=== PATIENT | female | born 1935 | race Caucasian/White ===

== ENCOUNTER 2020-06-04 15:09 | Emergency (ER) | payer MEDICARE ==
[~2020-06-04] VITALS: Ht 170.2 cm; Wt 83.9 kg
[2020-06-04 15:15] VITALS: BP_SYST 104
[2020-06-04 16:53] LABS: ANION GAP 7 (5-15); CALCIUM 7.7 mg/dL (8.4-11.0); CHLORIDE 106 mmol/L (98-107); CREATININE 1.17 mg/dL (0.55-1.30); GLUCOSE 92 mg/dL (70-99); SODIUM SERUM 137 mmol/L (136-145); UREA NITROGEN, BLOOD 21 mg/dL (8-21)
[2020-06-04 16:55] LABS: EOSINOPHILS % (AUTO) 0.1 % (0.0-4.0)
[2020-06-04 17:04] LABS: ALANINE AMINOTRANSFERASE 44 U/L (12-78); ALBUMIN 3.1 g/dL (3.4-4.8); ASPARTATE AMINOTRANSFERASE 70 U/L (10-37); TOTAL BILIRUBIN 0.5 mg/dL (0.0-1.0)
[2020-06-04 17:57] LABS: BASOPHILS % (AUTO) 0.4 % (0.0-2.0); HEMATOCRIT 37.8 % (36-48); HEMOGLOBIN 12.6 g/dL (12.0-16.0); LYMPHOCYTES # (AUTO) 1.2 K/uL (1.0-5.5); LYMPHOCYTES % (AUTO) 27.8 % (20.5-51.5); MEAN CORPUSCULAR HEMOGLOBIN 32 pg (27-31); MEAN CORPUSCULAR HGB CONC 33 % (32-36); MEAN CORPUSCULAR VOLUME 95 fL (79.0-98.0); MONOCYTES # (AUTO) 0.4 K/uL (0.0-1.0); MONOCYTES % (AUTO) 8.2 % (1.7-9.3); NEUTROPHILS # (AUTO) 2.7 K/uL (1.8-7.7); NEUTROPHILS % (AUTO) 63.5 % (40.0-70.0); PLATELET COUNT (AUTO) 125 K/uL (130-430); RED BLOOD CELL COUNT(AUTO) 3.98 MIL/uL (4.2-6.2); RED CELL DISTRIBUTION WIDTH 14.3 % (9.0-15.0); WHITE BLOOD COUNT (AUTO) 4.3 K/uL (4.8-10.8)
[2020-06-04 18:07] LABS: BILIRUBIN,URINE NEGATIVE (NEGATIVE); BLOOD, URINE NEGATIVE (NEGATIVE); COLOR,URINE YELLOW (YELLOW); GLUCOSE,URINE NEGATIVE (NEGATIVE); KETONES,URINE NEGATIVE (NEGATIVE); LEUKOCYTE ESTERASE ,URINE 1+ (NEGATIVE); NITRITE, URINE POSITIVE (NEGATIVE); PROTEIN URINE NEGATIVE (NEGATIVE); UROBILINOGEN,URINE 0.2 (0.2-1.0)
[2020-06-04 18:21] LABS: CLARITY/URINE HAZY (CLEAR)
[2020-06-04 18:37] LABS: BACTERIA,URINE MANY /HPF (None Seen); RBC,URINE 0-3 /HPF (0-3); WBC,URINE 20-50 /HPF (0-3)
[2020-06-04 18:38] LABS: FINE GRANULAR CASTS,URINE 0-10 /LPF (None Seen); MUCUS,URINE 1+ /LPF (None Seen)
[2020-06-04 19:00] VITALS: BP_SYST 146
== END 2020-06-04 19:00 | disposition home or self-care (01) ==
LOC: SED 15:09
DX: N39.0 Urinary tract infection, site not specified (principal); I10 Essential (primary) hypertension; Z20.822 Contact with and (suspected) exposure to COVID-19
CPT/HCPCS: 36415; 71045; 80053; 81000-TC; 84484; 85025; 87040-TC; 87086; 93005; 99285

== ENCOUNTER 2020-06-07 06:43 | Inpatient (IN) | payer MEDICARE, SELFPAY ==
[~2020-06-07] VITALS: Ht 152.4 cm; Wt 83.0 kg
[2020-06-07 06:45] VITALS: BP_SYST 142
[2020-06-07] MEDS ORDERED: DEXAMETHASONE SOD PHOSPHATE 10 MG/ML VIAL IVP ONE (08:00)
[2020-06-07] MEDS ORDERED: cefTRIAXone 1 GM IVPB PREMIX 50 ML IV ONE (08:15)
[2020-06-07] MEDS ORDERED: DEXAMETHASONE SOD PHOSPHATE 10 MG/ML VIAL ONE ×2 (08:28→14:01)
[2020-06-07 08:38] LABS: ANION GAP 13 (5-15); CALCIUM 8.2 mg/dL (8.4-11.0); CHLORIDE 102 mmol/L (98-107); CREATININE 0.87 mg/dL (0.55-1.30); GLUCOSE 94 mg/dL (70-99); POTASSIUM 3.6 mmol/L (3.5-5.1); SODIUM SERUM 137 mmol/L (136-145); UREA NITROGEN, BLOOD 20 mg/dL (8-21)
[2020-06-07 08:44] LABS: ALANINE AMINOTRANSFERASE 35 U/L (12-78); ASPARTATE AMINOTRANSFERASE 89 U/L (10-37); LACTATE DEHYDROGENASE 558 U/L (81-234); TOTAL BILIRUBIN 0.7 mg/dL (0.0-1.0)
[2020-06-07 09:01] LABS: BILIRUBIN,URINE NEGATIVE (NEGATIVE); COLOR,URINE YELLOW (YELLOW); GLUCOSE,URINE NEGATIVE (NEGATIVE); KETONES,URINE TRACE (NEGATIVE); LEUKOCYTE ESTERASE ,URINE NEGATIVE (NEGATIVE); NITRITE, URINE NEGATIVE (NEGATIVE); PROTEIN URINE 1+ (NEGATIVE); UROBILINOGEN,URINE 0.2 (0.2-1.0)
[2020-06-07 09:06] LABS: BLOOD, URINE TRACE (NEGATIVE)
[2020-06-07 09:13] LABS: CKMB RELATIVE INDEX 0.5 (0.0-2.9); CREATINE KINASE MB 0.9 ng/mL (0-3.6)
[2020-06-07 10:03] LABS: C-REACTIVE PROTEIN QUANT 17.3 mg/dL (0-0.5)
[2020-06-07 10:38] LABS: CLARITY/URINE SLIGHTLY HAZY (CLEAR)
[2020-06-07 10:38] LABS: PROTHROMBIN TIME 10.6 SECS (9.5-12.5)
[2020-06-07 10:39] LABS: BACTERIA,URINE MODERATE /HPF (None Seen); HYALINE CASTS, URINE 0-10 /LPF (None Seen)
[2020-06-07 11:52] VITALS: BP_SYST 160
[2020-06-07] MEDS ORDERED: HYDROcodone/ACETAMIN 5-325 MG TAB (NORCO/ VICODIN) PO PRN (13:00)
[2020-06-07] MEDS ORDERED: HYDROcodone/ACETAMIN 10-325 MG TAB PO PRN (13:00)
[2020-06-07] MEDS ORDERED: HYDROCHLOROTHIAZIDE 25 MG TABLET (HCTZ) PO ONE (13:00)
[2020-06-07] MEDS ORDERED: ACETAMINOPHEN 325 MG TABLET PO PRN (13:00)
[2020-06-07] MEDS ORDERED: cloNIDine HCL 0.1 MG TABLET PO PRN (13:00)
[2020-06-07] MEDS ORDERED: ONDANSETRON HCL 4 MG/2 ML VIAL IVP PRN (13:00)
[2020-06-07] MEDS ORDERED: NALOXONE HCL 0.4 MG/ML AMP (NARCAN) IVP PRN ×2 (13:00)
[2020-06-07] MEDS ORDERED: NORMAL SALINE 5 ML DISP.SYRIN IVF SCH (14:00)
[2020-06-07] MEDS: IPRATROPIUM BROM 0.5 MG/2.5 ML VIAL.NEB (ATROVENT) INH SCH ×3 (15:00→23:00)
[2020-06-07] MEDS: DEXAMETHASONE SOD PHOSPHATE 10 MG/ML VIAL IVP SCH (15:19)
[2020-06-07 16:00] VITALS: BP_SYST 161
[2020-06-07] MEDS: AZITHROMYCIN 500 MG in NS 250 ML IV SCH (16:15)
[2020-06-07] MEDS: NORMAL SALINE 5 ML DISP.SYRIN IVF SCH ×2 (16:15→22:00)
[2020-06-07 20:00] VITALS: BP_SYST 117
[2020-06-07] MEDS: ENOXAPARIN SODIUM 30 MG/0.3 ML SYRINGE SUBCUT SCH (21:00)
[2020-06-08 00:51] VITALS: BP_SYST 158
[2020-06-08 01:01] VITALS: BP_SYST 158
[2020-06-08] MEDS: IPRATROPIUM BROM 0.5 MG/2.5 ML VIAL.NEB (ATROVENT) INH SCH ×6 (03:00→23:00)
[2020-06-08] MEDS: NORMAL SALINE 5 ML DISP.SYRIN IVF SCH ×3 (06:32→20:30)
[2020-06-08] MEDS: ALBUTEROL MDI INHALATION 8 GM INH INH SCH ×5 (07:21→22:30)
[2020-06-08 07:32] LABS: ANION GAP 13 (5-15); CALCIUM 8.2 mg/dL (8.4-11.0); CHLORIDE 101 mmol/L (98-107); CREATININE 0.64 mg/dL (0.55-1.30); GLUCOSE 130 mg/dL (70-99); PHOSPHORUS 2.6 mg/dL (2.7-4.5); POTASSIUM 3.3 mmol/L (3.5-5.1); SODIUM SERUM 140 mmol/L (136-145); UREA NITROGEN, BLOOD 15 mg/dL (8-21)
[2020-06-08 08:00] VITALS: BP_SYST 151
[2020-06-08 08:19] LABS: C-REACTIVE PROTEIN QUANT 20.3 mg/dL (0-0.5)
[2020-06-08 08:41] LABS: BASOPHILS # (AUTO) 0.1 K/uL (0.0-0.2); BASOPHILS % (AUTO) 0.9 % (0.0-2.0); HEMATOCRIT 39.5 % (36-48); HEMOGLOBIN 13.3 g/dL (12.0-16.0); LYMPHOCYTES # (AUTO) 0.5 K/uL (1.0-5.5); LYMPHOCYTES % (AUTO) 7.7 % (20.5-51.5); MEAN CORPUSCULAR HEMOGLOBIN 31 pg (27-31); MEAN CORPUSCULAR HGB CONC 34 % (32-36); MEAN CORPUSCULAR VOLUME 93 fL (79.0-98.0); MONOCYTES # (AUTO) 0.5 K/uL (0.0-1.0); MONOCYTES % (AUTO) 8.1 % (1.7-9.3); NEUTROPHILS # (AUTO) 5.2 K/uL (1.8-7.7); NEUTROPHILS % (AUTO) 83.3 % (40.0-70.0); PLATELET COUNT (AUTO) 173 K/uL (130-430); RED BLOOD CELL COUNT(AUTO) 4.23 MIL/uL (4.2-6.2); RED CELL DISTRIBUTION WIDTH 14.2 % (9.0-15.0); WHITE BLOOD COUNT (AUTO) 6.2 K/uL (4.8-10.8)
[2020-06-08] MEDS: ENOXAPARIN SODIUM 30 MG/0.3 ML SYRINGE SUBCUT SCH (09:00)
[2020-06-08] MEDS: cefTRIAXone 1 GM IVPB PREMIX 50 ML IV SCH (09:00)
[2020-06-08] MEDS ORDERED: ENOXAPARIN SODIUM 30 MG/0.3 ML SYRINGE SUBCUT SCH (09:00)
[2020-06-08] MEDS ORDERED: *LOVENOX 1MG/KG Q12H/PHARMACY XX ONE (09:45)
[2020-06-08 10:15] LABS: BASOPHILS % (AUTO) 0.5 % (0.0-2.0); EOSINOPHILS % (AUTO) 0.1 % (0.0-4.0); HEMATOCRIT 38.2 % (36-48); HEMOGLOBIN 12.5 g/dL (12.0-16.0); LYMPHOCYTES # (AUTO) 0.7 K/uL (1.0-5.5); LYMPHOCYTES % (AUTO) 10.7 % (20.5-51.5); MEAN CORPUSCULAR HEMOGLOBIN 31 pg (27-31); MEAN CORPUSCULAR HGB CONC 33 % (32-36); MEAN CORPUSCULAR VOLUME 96 fL (79.0-98.0); MONOCYTES # (AUTO) 0.1 K/uL (0.0-1.0); MONOCYTES % (AUTO) 1.4 % (1.7-9.3); NEUTROPHILS # (AUTO) 5.4 K/uL (1.8-7.7); NEUTROPHILS % (AUTO) 87.3 % (40.0-70.0); PLATELET COUNT (AUTO) 173 K/uL (130-430); RED CELL DISTRIBUTION WIDTH 15.2 % (9.0-15.0)
[2020-06-08 10:20] LABS: WHITE BLOOD COUNT (AUTO) 6.2 K/uL (4.8-10.8)
[2020-06-08 10:26] LABS: RED BLOOD CELL COUNT(AUTO) 3.98 MIL/uL (4.2-6.2)
[2020-06-08] MEDS: HYDROCHLOROTHIAZIDE 25 MG TABLET (HCTZ) PO SCH (10:28)
[2020-06-08] MEDS: DEXAMETHASONE SOD PHOSPHATE 10 MG/ML VIAL IVP SCH (10:28)
[2020-06-08 12:13] VITALS: BP_SYST 127
[2020-06-08] MEDS: AZITHROMYCIN 500 MG in NS 250 ML IV SCH (14:00)
[2020-06-08 16:18] VITALS: BP_SYST 143
[2020-06-08 20:00] VITALS: BP_SYST 158
[2020-06-09] VITALS: BP_SYST 142
[2020-06-09] MEDS: IPRATROPIUM BROM 0.5 MG/2.5 ML VIAL.NEB (ATROVENT) INH SCH (03:00)
[2020-06-09] MEDS: NORMAL SALINE 5 ML DISP.SYRIN IVF SCH ×3 (06:00→23:00)
[2020-06-09] MEDS: ALBUTEROL MDI INHALATION 8 GM INH INH SCH ×5 (07:45→23:00)
[2020-06-09 08:33] LABS: ALANINE AMINOTRANSFERASE 35 U/L (12-78); ALBUMIN 2.7 g/dL (3.4-4.8); ANION GAP 9 (5-15); ASPARTATE AMINOTRANSFERASE 88 U/L (10-37); CALCIUM 8.2 mg/dL (8.4-11.0); CHLORIDE 102 mmol/L (98-107); CREATININE 0.72 mg/dL (0.55-1.30); GLUCOSE 130 mg/dL (70-99); POTASSIUM 3.6 mmol/L (3.5-5.1); SODIUM SERUM 141 mmol/L (136-145); TOTAL BILIRUBIN 0.8 mg/dL (0.0-1.0); UREA NITROGEN, BLOOD 21 mg/dL (8-21)
[2020-06-09] MEDS: ENOXAPARIN SODIUM 80 MG/0.8 ML SYRINGE SUBCUT SCH (09:00)
[2020-06-09] MEDS ORDERED: ENOXAPARIN SODIUM 80 MG/0.8 ML SYRINGE ONE (09:06)
[2020-06-09 09:13] LABS: BASOPHILS % (AUTO) 0.2 % (0.0-2.0); LYMPHOCYTES # (AUTO) 0.3 K/uL (1.0-5.5); LYMPHOCYTES % (AUTO) 4.3 % (20.5-51.5); MONOCYTES # (AUTO) 0.5 K/uL (0.0-1.0); NEUTROPHILS # (AUTO) 5.3 K/uL (1.8-7.7); NEUTROPHILS % (AUTO) 86.5 % (40.0-70.0)
[2020-06-09] MEDS: cefTRIAXone 1 GM IVPB PREMIX 50 ML IV SCH (09:21)
[2020-06-09 09:22] VITALS: BP_SYST 131
[2020-06-09] MEDS: HYDROCHLOROTHIAZIDE 25 MG TABLET (HCTZ) PO SCH (09:22)
[2020-06-09] MEDS: DEXAMETHASONE SOD PHOSPHATE 10 MG/ML VIAL IVP SCH (09:22)
[2020-06-09 10:55] LABS: ERYTHROCYTE SEDIMENTATION RATE 58 MM/HR (0-20)
[2020-06-09 13:08] LABS: WHITE BLOOD COUNT (AUTO) 9.8 K/uL (4.8-10.8)
[2020-06-09 13:09] LABS: HEMATOCRIT 39.6 % (36-48); MEAN CORPUSCULAR VOLUME 93 fL (79.0-98.0); RED BLOOD CELL COUNT(AUTO) 4.25 MIL/uL (4.2-6.2)
[2020-06-09 13:10] LABS: MEAN CORPUSCULAR HEMOGLOBIN 31 pg (27-31); MEAN CORPUSCULAR HGB CONC 34 % (32-36); PLATELET COUNT (AUTO) 244 K/uL (130-430); RED CELL DISTRIBUTION WIDTH 14.2 % (9.0-15.0)
[2020-06-09 13:15] LABS: HEMOGLOBIN 13.3 g/dL (12.0-16.0)
[2020-06-09 13:25] VITALS: BP_SYST 118
[2020-06-09] MEDS: AZITHROMYCIN 500 MG in NS 250 ML IV SCH (14:04)
[2020-06-09 17:21] VITALS: BP_SYST 140
[2020-06-09 20:00] VITALS: BP_SYST 157
[2020-06-09 23:14] LABS: C-REACTIVE PROTEIN QUANT 9.6 mg/dL (0-0.5)
[2020-06-10] VITALS: BP_SYST 134
[2020-06-10] MEDS: LORazepam 2 MG/ML VIAL IVP PRN (02:30)
[2020-06-10] MEDS: ALBUTEROL MDI INHALATION 8 GM INH INH SCH ×4 (03:00→15:00)
[2020-06-10] MEDS: NORMAL SALINE 5 ML DISP.SYRIN IVF SCH ×3 (06:00→22:00)
[2020-06-10 08:00] VITALS: BP_SYST 137
[2020-06-10 08:40] LABS: ANION GAP 7 (5-15); CHLORIDE 104 mmol/L (98-107); CREATININE 0.73 mg/dL (0.55-1.30); GLUCOSE 130 mg/dL (70-99); POTASSIUM 3.6 mmol/L (3.5-5.1); SODIUM SERUM 142 mmol/L (136-145); UREA NITROGEN, BLOOD 26 mg/dL (8-21)
[2020-06-10] MEDS: HYDROCHLOROTHIAZIDE 25 MG TABLET (HCTZ) PO SCH (09:00)
[2020-06-10 10:02] LABS: BASOPHILS % (AUTO) 0.2 % (0.0-2.0); HEMATOCRIT 37.4 % (36-48); HEMOGLOBIN 12.7 g/dL (12.0-16.0); LYMPHOCYTES # (AUTO) 0.3 K/uL (1.0-5.5); LYMPHOCYTES % (AUTO) 4.1 % (20.5-51.5); MEAN CORPUSCULAR HEMOGLOBIN 32 pg (27-31); MEAN CORPUSCULAR HGB CONC 34 % (32-36); MEAN CORPUSCULAR VOLUME 93 fL (79.0-98.0); MONOCYTES # (AUTO) 0.8 K/uL (0.0-1.0); MONOCYTES % (AUTO) 9.4 % (1.7-9.3); NEUTROPHILS # (AUTO) 7.3 K/uL (1.8-7.7); NEUTROPHILS % (AUTO) 86.3 % (40.0-70.0); PLATELET COUNT (AUTO) 222 K/uL (130-430); RED BLOOD CELL COUNT(AUTO) 4.03 MIL/uL (4.2-6.2); RED CELL DISTRIBUTION WIDTH 14.1 % (9.0-15.0); WHITE BLOOD COUNT (AUTO) 8.4 K/uL (4.8-10.8)
[2020-06-10 10:11] LABS: ERYTHROCYTE SEDIMENTATION RATE 49 MM/HR (0-20)
[2020-06-10] MEDS: DEXAMETHASONE SOD PHOSPHATE 10 MG/ML VIAL IVP SCH (10:45)
[2020-06-10] MEDS: ENOXAPARIN SODIUM 80 MG/0.8 ML SYRINGE SUBCUT SCH (10:45)
[2020-06-10] MEDS: cefTRIAXone 1 GM IVPB PREMIX 50 ML IV SCH (10:45)
[2020-06-10 11:39] VITALS: BP_SYST 142
[2020-06-10] MEDS: AZITHROMYCIN 500 MG in NS 250 ML IV SCH (14:00)
[2020-06-10 15:35] VITALS: BP_SYST 142
[2020-06-10 16:09] LABS: C-REACTIVE PROTEIN QUANT 5.3 mg/dL (0-0.5)
[2020-06-10 20:00] VITALS: BP_SYST 147
[2020-06-11] VITALS: BP_SYST 140
[2020-06-11] MEDS: NORMAL SALINE 5 ML DISP.SYRIN IVF SCH ×3 (05:23→23:26)
[2020-06-11 08:00] VITALS: BP_SYST 157
[2020-06-11 08:07] LABS: ANION GAP 9 (5-15); CALCIUM 8.2 mg/dL (8.4-11.0); CHLORIDE 104 mmol/L (98-107); CREATININE 0.63 mg/dL (0.55-1.30); GLUCOSE 110 mg/dL (70-99); POTASSIUM 4.8 mmol/L (3.5-5.1); SODIUM SERUM 144 mmol/L (136-145); UREA NITROGEN, BLOOD 25 mg/dL (8-21)
[2020-06-11 08:42] LABS: ERYTHROCYTE SEDIMENTATION RATE 37 MM/HR (0-20)
[2020-06-11] MEDS: HYDROCHLOROTHIAZIDE 25 MG TABLET (HCTZ) PO SCH (09:00)
[2020-06-11] MEDS: ALBUTEROL MDI INHALATION 8 GM INH INH SCH ×2 (09:30→19:00)
[2020-06-11] MEDS: cefTRIAXone 1 GM IVPB PREMIX 50 ML IV SCH (09:36)
[2020-06-11] MEDS: LORazepam 2 MG/ML VIAL IVP PRN (09:36)
[2020-06-11] MEDS: DEXAMETHASONE SOD PHOSPHATE 10 MG/ML VIAL IVP SCH (09:36)
[2020-06-11] MEDS: ENOXAPARIN SODIUM 80 MG/0.8 ML SYRINGE SUBCUT SCH (09:51)
[2020-06-11 10:13] LABS: BASOPHILS # (AUTO) 0.1 K/uL (0.0-0.2); BASOPHILS % (AUTO) 0.6 % (0.0-2.0); HEMATOCRIT 40.8 % (36-48); HEMOGLOBIN 13.4 g/dL (12.0-16.0); LYMPHOCYTES # (AUTO) 0.6 K/uL (1.0-5.5); MEAN CORPUSCULAR HEMOGLOBIN 31 pg (27-31); MEAN CORPUSCULAR HGB CONC 33 % (32-36); MEAN CORPUSCULAR VOLUME 95 fL (79.0-98.0); MONOCYTES # (AUTO) 0.7 K/uL (0.0-1.0); MONOCYTES % (AUTO) 6.4 % (1.7-9.3); NEUTROPHILS # (AUTO) 9.7 K/uL (1.8-7.7); PLATELET COUNT (AUTO) 217 K/uL (130-430); RED BLOOD CELL COUNT(AUTO) 4.29 MIL/uL (4.2-6.2); RED CELL DISTRIBUTION WIDTH 14.1 % (9.0-15.0)
[2020-06-11 10:45] LABS: C-REACTIVE PROTEIN QUANT 4.6 mg/dL (0-0.5)
[2020-06-11 11:28] VITALS: BP_SYST 143
[2020-06-11] MEDS: AZITHROMYCIN 500 MG in NS 250 ML IV SCH (14:39)
[2020-06-11 15:26] VITALS: BP_SYST 107
[2020-06-11] MEDS: IPRATROPIUM BROM 0.5 MG/2.5 ML VIAL.NEB (ATROVENT) INH SCH (19:00)
[2020-06-11 20:00] VITALS: BP_SYST 154
[2020-06-12] VITALS: BP_SYST 151
[2020-06-12] MEDS: NORMAL SALINE 5 ML DISP.SYRIN IVF SCH ×3 (05:10→20:36)
[2020-06-12] MEDS: ALBUTEROL MDI INHALATION 8 GM INH INH SCH ×5 (07:55→23:40)
[2020-06-12] MEDS: IPRATROPIUM BROM 0.5 MG/2.5 ML VIAL.NEB (ATROVENT) INH SCH (07:55)
[2020-06-12 08:05] LABS: ALANINE AMINOTRANSFERASE 40 U/L (12-78); ALBUMIN 2.6 g/dL (3.4-4.8); ANION GAP 9 (5-15); ASPARTATE AMINOTRANSFERASE 63 U/L (10-37); CALCIUM 8.1 mg/dL (8.4-11.0); CHLORIDE 107 mmol/L (98-107); CREATININE 0.57 mg/dL (0.55-1.30); GLUCOSE 135 mg/dL (70-99); POTASSIUM 4.8 mmol/L (3.5-5.1); SODIUM SERUM 146 mmol/L (136-145); TOTAL BILIRUBIN 1.4 mg/dL (0.0-1.0); UREA NITROGEN, BLOOD 23 mg/dL (8-21)
[2020-06-12 08:30] VITALS: BP_SYST 159
[2020-06-12 08:51] LABS: BASOPHILS # (AUTO) 0.1 K/uL (0.0-0.2); BASOPHILS % (AUTO) 0.6 % (0.0-2.0); HEMATOCRIT 42.5 % (36-48); HEMOGLOBIN 13.9 g/dL (12.0-16.0); LYMPHOCYTES # (AUTO) 0.4 K/uL (1.0-5.5); MEAN CORPUSCULAR HEMOGLOBIN 31 pg (27-31); MEAN CORPUSCULAR HGB CONC 33 % (32-36); MEAN CORPUSCULAR VOLUME 96 fL (79.0-98.0); MONOCYTES # (AUTO) 0.4 K/uL (0.0-1.0); MONOCYTES % (AUTO) 3.6 % (1.7-9.3); NEUTROPHILS # (AUTO) 10.3 K/uL (1.8-7.7); NEUTROPHILS % (AUTO) 91.8 % (40.0-70.0); PLATELET COUNT (AUTO) 185 K/uL (130-430); RED BLOOD CELL COUNT(AUTO) 4.45 MIL/uL (4.2-6.2); RED CELL DISTRIBUTION WIDTH 14.2 % (9.0-15.0); WHITE BLOOD COUNT (AUTO) 11.3 K/uL (4.8-10.8)
[2020-06-12] MEDS: DEXAMETHASONE SOD PHOSPHATE 10 MG/ML VIAL IVP SCH (09:00)
[2020-06-12] MEDS: HYDROCHLOROTHIAZIDE 25 MG TABLET (HCTZ) PO SCH (09:00)
[2020-06-12] MEDS: cefTRIAXone 1 GM IVPB PREMIX 50 ML IV SCH (10:20)
[2020-06-12] MEDS ORDERED: ENOXAPARIN SODIUM 80 MG/0.8 ML SYRINGE ONE (10:22)
[2020-06-12] MEDS: ENOXAPARIN SODIUM 80 MG/0.8 ML SYRINGE SUBCUT SCH (10:25)
[2020-06-12 12:12] VITALS: BP_SYST 158
[2020-06-12 12:21] LABS: ERYTHROCYTE SEDIMENTATION RATE 48 MM/HR (0-20)
[2020-06-12 16:00] VITALS: BP_SYST 156
[2020-06-12] MEDS ORDERED: hydrALAZINE HCL 20 MG/ML VIAL IVP PRN ×3 (18:45→23:15)
[2020-06-12 20:00] VITALS: BP_SYST 153
[2020-06-13] VITALS (11 sets, daily range): BP systolic 90–166
[2020-06-13] MEDS: ALBUTEROL MDI INHALATION 8 GM INH INH SCH ×4 (04:39→15:38)
[2020-06-13] MEDS: NORMAL SALINE 5 ML DISP.SYRIN IVF SCH ×3 (05:42→21:32)
[2020-06-13 07:26] LABS: ANION GAP 9 (5-15); CALCIUM 8.1 mg/dL (8.4-11.0); CHLORIDE 109 mmol/L (98-107); CREATININE 0.69 mg/dL (0.55-1.30); GLUCOSE 139 mg/dL (70-99); POTASSIUM 4.1 mmol/L (3.5-5.1); SODIUM SERUM 149 mmol/L (136-145); UREA NITROGEN, BLOOD 25 mg/dL (8-21)
[2020-06-13] MEDS ORDERED: ENOXAPARIN SODIUM 80 MG/0.8 ML SYRINGE ONE (07:59)
[2020-06-13] MEDS: cefTRIAXone 1 GM IVPB PREMIX 50 ML IV SCH (08:35)
[2020-06-13] MEDS: HYDROCHLOROTHIAZIDE 25 MG TABLET (HCTZ) PO SCH (08:35)
[2020-06-13] MEDS: DEXAMETHASONE SOD PHOSPHATE 10 MG/ML VIAL IVP SCH (08:35)
[2020-06-13 09:29] LABS: BASOPHILS % (AUTO) 0.4 % (0.0-2.0); HEMATOCRIT 40.3 % (36-48); HEMOGLOBIN 13.3 g/dL (12.0-16.0); LYMPHOCYTES # (AUTO) 0.4 K/uL (1.0-5.5); LYMPHOCYTES % (AUTO) 3.7 % (20.5-51.5); MEAN CORPUSCULAR HEMOGLOBIN 32 pg (27-31); MEAN CORPUSCULAR HGB CONC 33 % (32-36); MEAN CORPUSCULAR VOLUME 96 fL (79.0-98.0); MONOCYTES # (AUTO) 0.3 K/uL (0.0-1.0); MONOCYTES % (AUTO) 2.8 % (1.7-9.3); NEUTROPHILS # (AUTO) 10.4 K/uL (1.8-7.7); NEUTROPHILS % (AUTO) 93.1 % (40.0-70.0); PLATELET COUNT (AUTO) 209 K/uL (130-430); RED BLOOD CELL COUNT(AUTO) 4.18 MIL/uL (4.2-6.2); RED CELL DISTRIBUTION WIDTH 14.4 % (9.0-15.0); WHITE BLOOD COUNT (AUTO) 11.1 K/uL (4.8-10.8)
[2020-06-13] MEDS: ENOXAPARIN SODIUM 80 MG/0.8 ML SYRINGE SUBCUT SCH (09:29)
[2020-06-13 10:12] LABS: C-REACTIVE PROTEIN QUANT 32.9 mg/dL (0-0.5)
[2020-06-13 10:51] LABS: ERYTHROCYTE SEDIMENTATION RATE 52 MM/HR (0-20)
[2020-06-13] MEDS ORDERED: *TPN PER PHARMACY XX PRN (14:30)
[2020-06-13] MEDS ORDERED: guaiFENesin/DEXTROMETHORPHAN 10 ML UDC PO PRN (15:00)
[2020-06-13] MEDS ORDERED: ETOMIDATE 20 MG/ 10 ML VIAL (AMIDATE) IVP ONE (15:08)
[2020-06-13] MEDS ORDERED: SUCCINYLCHOLINE CHLORIDE 20 MG/ML(QUELICIN) IVP ONE (15:08)
[2020-06-13] MEDS: LORazepam 2 MG/ML VIAL IVP PRN (16:15)
[2020-06-13] MEDS: LORazepam 2 MG/ML VIAL ONE ×2 (20:09→20:35)
[2020-06-13] MEDS ORDERED: LORazepam 2 MG/ML VIAL IVP ONE (20:15)
[2020-06-13] MEDS ORDERED: PROPOFOL DRIP 100 ML IV PRN (20:15)
[2020-06-13] MEDS ORDERED: PROPOFOL DRIP 100 ML IV ONE (20:50)
[2020-06-13] MEDS: APIXABAN 2.5 MG TABLET PO SCH (21:00)
[2020-06-13] MEDS: PROPOFOL DRIP 1000 MG/ 100 ML BTL IV PRN (21:30)
[2020-06-14] VITALS (26 sets, daily range): BP systolic 84–141
[2020-06-14] MEDS: ALBUTEROL MDI INHALATION 8 GM INH INH SCH ×7 (00:19→23:50)
[2020-06-14] MEDS: NORMAL SALINE 5 ML DISP.SYRIN IVF SCH ×3 (06:28→22:21)
[2020-06-14] MEDS: PROPOFOL DRIP 1000 MG/ 100 ML BTL IV PRN ×2 (06:31→20:44)
[2020-06-14 08:08] LABS: ALANINE AMINOTRANSFERASE 27 U/L (12-78); ALBUMIN 2.2 g/dL (3.4-4.8); ANION GAP 8 (5-15); ASPARTATE AMINOTRANSFERASE 41 U/L (10-37); CALCIUM 7.9 mg/dL (8.4-11.0); CHLORIDE 109 mmol/L (98-107); CREATININE 1.13 mg/dL (0.55-1.30); GLUCOSE 112 mg/dL (70-99); PHOSPHORUS 2.5 mg/dL (2.7-4.5); POTASSIUM 3.6 mmol/L (3.5-5.1); SODIUM SERUM 147 mmol/L (136-145); TOTAL BILIRUBIN 1.2 mg/dL (0.0-1.0); UREA NITROGEN, BLOOD 44 mg/dL (8-21)
[2020-06-14] MEDS: cefTRIAXone 1 GM IVPB PREMIX 50 ML IV SCH (09:00)
[2020-06-14] MEDS: APIXABAN 2.5 MG TABLET PO SCH ×2 (09:00→22:27)
[2020-06-14] MEDS: HYDROCHLOROTHIAZIDE 25 MG TABLET (HCTZ) PO SCH (09:00)
[2020-06-14] MEDS: DEXAMETHASONE SOD PHOSPHATE 10 MG/ML VIAL IVP SCH (09:00)
[2020-06-14 11:33] LABS: TRIGLYCERIDES 200 mg/dL (30-150)
[2020-06-14] MEDS: metroNIDAZOLE 250 mg/NS 50 ML IV SCH ×2 (14:00→22:00)
[2020-06-14] MEDS: IPRATROPIUM BROM 0.5 MG/2.5 ML VIAL.NEB (ATROVENT) INH SCH (19:00)
[2020-06-14] MEDS ORDERED: TPN CENTRAL IV SCH ×6 (21:00)
[2020-06-14] MEDS ORDERED: MVI IV SCH ×6 (21:00)
[2020-06-14] MEDS ORDERED: [UNRECOGNIZED DRUG - OTHER] IV SCH ×6 (21:00)
[2020-06-14] MEDS ORDERED: TRACE ELEMENTS IV SCH ×6 (21:00)
[2020-06-14] MEDS ORDERED: K PHOS IV SCH ×6 (21:00)
[2020-06-14] MEDS: NYSTATIN 15 GM TOPICAL POWDER TP SCH (22:21)
[2020-06-15] VITALS (26 sets, daily range): BP systolic 105–165
[2020-06-15] MEDS ORDERED: D5W 1,000 ML IV PRN (00:45)
[2020-06-15] MEDS ORDERED: DEXTROSE 50% JECT 50 ML DISP.SYRIN IVP PRN (00:45)
[2020-06-15] MEDS ORDERED: GLUCOSE (DEXTROSE) ORAL GEL -Adults PO PRN (00:45)
[2020-06-15] MEDS: INSULIN REGULAR, HUMAN 100 UNITS/ML, 10 ML VIAL (humuLIN R) SUBCUT PRN ×4 (01:30→18:35)
[2020-06-15] MEDS ORDERED: metroNIDAZOLE 500 mg/NS 100 ML IV ONE (02:34)
[2020-06-15] MEDS: ALBUTEROL MDI INHALATION 8 GM INH INH SCH ×6 (03:00→23:53)
[2020-06-15] MEDS: PROPOFOL DRIP 1000 MG/ 100 ML BTL IV PRN ×2 (04:16→22:11)
[2020-06-15] MEDS: metroNIDAZOLE 250 mg/NS 50 ML IV SCH ×3 (05:57→21:39)
[2020-06-15] MEDS: NORMAL SALINE 5 ML DISP.SYRIN IVF SCH ×3 (05:58→22:12)
[2020-06-15 06:50] LABS: ALANINE AMINOTRANSFERASE 27 U/L (12-78); ALBUMIN 2.1 g/dL (3.4-4.8); ANION GAP 11 (5-15); ASPARTATE AMINOTRANSFERASE 35 U/L (10-37); CALCIUM 7.8 mg/dL (8.4-11.0); CHLORIDE 109 mmol/L (98-107); CREATININE 1.32 mg/dL (0.55-1.30); GLUCOSE 259 mg/dL (70-99); PHOSPHORUS 2.8 mg/dL (2.7-4.5); POTASSIUM 3.2 mmol/L (3.5-5.1); SODIUM SERUM 147 mmol/L (136-145); TOTAL BILIRUBIN 1.1 mg/dL (0.0-1.0); UREA NITROGEN, BLOOD 60 mg/dL (8-21)
[2020-06-15 08:53] LABS: HEMATOCRIT 35.7 % (36-48); HEMOGLOBIN 11.8 g/dL (12.0-16.0); MEAN CORPUSCULAR HEMOGLOBIN 31 pg (27-31); MEAN CORPUSCULAR HGB CONC 33 % (32-36); MEAN CORPUSCULAR VOLUME 95 fL (79.0-98.0); PLATELET COUNT (AUTO) 150 K/uL (130-430); RED BLOOD CELL COUNT(AUTO) 3.77 MIL/uL (4.2-6.2); WHITE BLOOD COUNT (AUTO) 8.1 K/uL (4.8-10.8)
[2020-06-15] MEDS: APIXABAN 2.5 MG TABLET PO SCH ×2 (09:00→22:11)
[2020-06-15] MEDS: NYSTATIN 15 GM TOPICAL POWDER TP SCH ×2 (09:00→21:39)
[2020-06-15] MEDS: HYDROCHLOROTHIAZIDE 25 MG TABLET (HCTZ) PO SCH (09:00)
[2020-06-15] MEDS: cefTRIAXone 1 GM IVPB PREMIX 50 ML IV SCH (09:00)
[2020-06-15] MEDS: DEXAMETHASONE SOD PHOSPHATE 10 MG/ML VIAL IVP SCH (09:00)
[2020-06-15 11:55] LABS: BAND % (MANUAL) 5 % (0-6)
[2020-06-15 11:56] LABS: BASOPHILS % (MANUAL) 0 % (0-2); EOSINOPHILS % (MANUAL) 0 % (0-7); ERYTHROCYTE SEDIMENTATION RATE 75 MM/HR (0-20); LYMPHOCYTES % (MANUAL) 1 % (20-46); MONOCYTES % (MANUAL) 4 % (0-11)
[2020-06-15] MEDS ORDERED: KCL 20 mEq in 100 mL (PREMIX) 100 ML IV ONE (15:30)
[2020-06-15] MEDS ORDERED: TPN CENTRAL IV SCH ×7 (21:00)
[2020-06-15] MEDS ORDERED: [UNRECOGNIZED DRUG - OTHER] IV SCH ×7 (21:00)
[2020-06-15] MEDS ORDERED: POTASSIUM ACETATE IV SCH ×7 (21:00)
[2020-06-15] MEDS ORDERED: POTASSIUM CHLORIDE IV SCH ×7 (21:00)
[2020-06-16] VITALS (19 sets, daily range): BP systolic 78–152
[2020-06-16] MEDS: PROPOFOL DRIP 1000 MG/ 100 ML BTL IV PRN ×2 (01:36→03:54)
[2020-06-16] MEDS: INSULIN REGULAR, HUMAN 100 UNITS/ML, 10 ML VIAL (humuLIN R) SUBCUT PRN ×2 (01:41→06:20)
[2020-06-16] MEDS: ALBUTEROL MDI INHALATION 8 GM INH INH SCH ×3 (03:00→11:54)
[2020-06-16] MEDS: metroNIDAZOLE 250 mg/NS 50 ML IV SCH (06:17)
[2020-06-16] MEDS: NORMAL SALINE 5 ML DISP.SYRIN IVF SCH (06:17)
[2020-06-16 07:00] LABS: ALANINE AMINOTRANSFERASE 27 U/L (12-78); ANION GAP 10 (5-15); ASPARTATE AMINOTRANSFERASE 34 U/L (10-37); CALCIUM 7.7 mg/dL (8.4-11.0); CHLORIDE 109 mmol/L (98-107); GLUCOSE 194 mg/dL (70-99); POTASSIUM 3.3 mmol/L (3.5-5.1); SODIUM SERUM 145 mmol/L (136-145); TOTAL BILIRUBIN 0.7 mg/dL (0.0-1.0); UREA NITROGEN, BLOOD 40 mg/dL (8-21)
[2020-06-16 07:36] LABS: C-REACTIVE PROTEIN QUANT 11.4 mg/dL (0-0.5)
[2020-06-16] MEDS: NYSTATIN 15 GM TOPICAL POWDER TP SCH (09:00)
[2020-06-16] MEDS: APIXABAN 2.5 MG TABLET PO SCH (09:00)
[2020-06-16] MEDS ORDERED: KCL 20 mEq in 100 mL (PREMIX) 100 ML IV ONE (09:00)
[2020-06-16] MEDS: cefTRIAXone 1 GM IVPB PREMIX 50 ML IV SCH (09:00)
[2020-06-16] MEDS: DEXAMETHASONE SOD PHOSPHATE 10 MG/ML VIAL IVP SCH (09:00)
[2020-06-16] MEDS: HYDROCHLOROTHIAZIDE 25 MG TABLET (HCTZ) PO SCH (09:00)
[2020-06-16 09:14] LABS: BASOPHILS % (AUTO) 0.3 % (0.0-2.0); EOSINOPHILS % (AUTO) 0.2 % (0.0-4.0); HEMATOCRIT 38.1 % (36-48); HEMOGLOBIN 12.3 g/dL (12.0-16.0); LYMPHOCYTES # (AUTO) 0.5 K/uL (1.0-5.5); LYMPHOCYTES % (AUTO) 3.9 % (20.5-51.5); MEAN CORPUSCULAR HEMOGLOBIN 31 pg (27-31); MEAN CORPUSCULAR HGB CONC 32 % (32-36); MEAN CORPUSCULAR VOLUME 95 fL (79.0-98.0); MONOCYTES # (AUTO) 0.5 K/uL (0.0-1.0); MONOCYTES % (AUTO) 3.8 % (1.7-9.3); NEUTROPHILS # (AUTO) 10.9 K/uL (1.8-7.7); PLATELET COUNT (AUTO) 170 K/uL (130-430); RED BLOOD CELL COUNT(AUTO) 4.01 MIL/uL (4.2-6.2); RED CELL DISTRIBUTION WIDTH 14.1 % (9.0-15.0); WHITE BLOOD COUNT (AUTO) 11.9 K/uL (4.8-10.8)
[2020-06-16] MEDS ORDERED: METOPROLOL TARTRATE 25 MG TABLET PO ONE (09:15)
[2020-06-16 09:16] LABS: NEUTROPHILS % (AUTO) 91.8 % (40.0-70.0)
[2020-06-16 11:39] LABS: ERYTHROCYTE SEDIMENTATION RATE 68 MM/HR (0-20)
[2020-06-16] MEDS ORDERED: MORPHINE I.V. DRIP 100 ML IV ONE (12:11)
[2020-06-16] MEDS ORDERED: MORPHINE I.V. DRIP 100 ML IV PRN (12:15)
[2020-06-16] MEDS ORDERED: POTASSIUM CHLORIDE IV SCH ×8 (21:00)
[2020-06-16] MEDS ORDERED: METOPROLOL TARTRATE 25 MG TABLET PO SCH (21:00)
[2020-06-16] MEDS ORDERED: POTASSIUM ACETATE IV SCH ×8 (21:00)
[2020-06-16] MEDS ORDERED: [UNRECOGNIZED DRUG - OTHER] IV SCH ×8 (21:00)
[2020-06-16] MEDS ORDERED: TPN CENTRAL IV SCH ×8 (21:00)
== END 2020-06-16 14:20 | disposition expired | DRG 871 ==
LOC: SED 06:43 → STU 09:45 → SIC 06-13 20:20
PROVIDERS: ADMIT Preventive Medicine Preventive Medicine/Occupational Environmental Medicine; ATTEND Preventive Medicine Preventive Medicine/Occupational Environmental Medicine
PROC: 5A09457 Assistance with Respiratory Ventilation, 24-96 Consecutive Hours, Continuous Positive Airway Pressure (ICD-10-PCS; 2020-06-08)
PROC: 5A09457 Assistance with Respiratory Ventilation, 24-96 Consecutive Hours, Continuous Positive Airway Pressure (ICD-10-PCS; 2020-06-11)
PROC: 5A09357 Assistance with Respiratory Ventilation, Less than 24 Consecutive Hours, Continuous Positive Airway Pressure (ICD-10-PCS; 2020-06-12)
PROC: 0BH17EZ Insertion of Endotracheal Airway into Trachea, Via Natural or Artificial Opening (ICD-10-PCS; principal; 2020-06-14)
PROC: 5A1945Z Respiratory Ventilation, 24-96 Consecutive Hours (ICD-10-PCS; 2020-06-14)
DX: A41.9 Sepsis, unspecified organism (principal); U07.1 COVID-19; J12.82 Pneumonia due to coronavirus disease 2019; J96.01 Acute respiratory failure with hypoxia; E43 Unspecified severe protein-calorie malnutrition; N39.0 Urinary tract infection, site not specified; E87.0 Hyperosmolality and hypernatremia; N17.9 Acute kidney failure, unspecified; B96.20 Unspecified Escherichia coli [E. coli] as the cause of diseases classified elsewhere; D72.819 Decreased white blood cell count, unspecified; E66.9 Obesity, unspecified; I10 Essential (primary) hypertension; R74.01 Elevation of levels of liver transaminase levels; R53.81 Other malaise; R73.9 Hyperglycemia, unspecified; E83.51 Hypocalcemia; E88.09 Other disorders of plasma-protein metabolism, not elsewhere classified; E83.39 Other disorders of phosphorus metabolism; E83.41 Hypermagnesemia; E80.6 Other disorders of bilirubin metabolism; E78.1 Pure hyperglyceridemia; E87.6 Hypokalemia; J98.2 Interstitial emphysema; Z68.35 Body mass index [BMI] 35.0-35.9, adult
CPT/HCPCS: 36415; 36600; 71045; 80048; 80053; 81000-TC; 82550-TC; 82553-TC; 82728; 82803-TC; 82962; 83605; 83615-TC; 83735-TC; 83880; 84100-TC; 84478-TC; 84484; 85007; 85025; 85027; 85379; 85384-TC; 85610-TC; 85651-TC; 85730-TC; 86140; 86886; 86900; 86901; 87040-TC; 87086; 93005; 94002; 94003; 94640; 94660; 94760; 96365; 96375; 99285; C1751; G0378; J0330; J0456; J0696; J1100; J1650; J1815; J2060; J2270; J2405; J2704; J3480; J3490; J7030; J7050